=== PATIENT | male | born 1955 | race Caucasian/White ===

== ENCOUNTER → 2024-04-29 10:16 | Outpatient (REF) | payer MEDICARE, SELFPAY | LOC: HWRAD 10:16 | PROVIDERS: ATTENDING PHYSICIAN Nurse Practitioner; FAMILY PHYSICIAN Internal Medicine | DX: M25.552 Pain in left hip (principal); M70.61 Trochanteric bursitis, right hip | CPT/HCPCS: 73523 ==

== ENCOUNTER 2024-10-02 08:51 | Day surgery (SDC) | payer MEDICARE, SELFPAY | END 2024-10-02 10:19 | disposition home or self-care (01) | LOC: CATH 08:51 | PROVIDERS: ATTENDING PHYSICIAN Internal Medicine Cardiovascular Disease; FAMILY PHYSICIAN Internal Medicine; OTHER PHYSICIAN Internal Medicine Cardiovascular Disease | DX: I48.19 Other persistent atrial fibrillation (principal); I08.3 Combined rheumatic disorders of mitral, aortic and tricuspid valves; I45.10 Unspecified right bundle-branch block; I48.3 Typical atrial flutter; I25.10 Atherosclerotic heart disease of native coronary artery without angina pectoris; I71.21 Aneurysm of the ascending aorta, without rupture; Z79.01 Long term (current) use of anticoagulants | CPT/HCPCS: 93312; 93320; 93325; 92960; 93005 ==

== ENCOUNTER → 2024-11-18 08:55 | Outpatient (REF) | payer MEDICARE, SELFPAY ==
[2024-11-18 09:49] LABS: Hematocrit 42.8 % (39.0-52.0); Hemoglobin 15.0 g/dL (13.0-18.0); Mean Corp Hgb Conc. 35.0 g/dL (33.0-37.0); Mean Corpuscular Volume 93.4 fL (80.0-94.0); Nucleated Red Blood Cells % 0 % (-); Platelet Count 209 10^3/uL (130-400); Red Cell Dist. Width 12.4 % (11.5-14.5)
[2024-11-18 09:59] LABS: INR 1.12; PT 14.7 Sec (11.4-14.6)
[2024-11-18 10:05] LABS: ALT (SGPT) 19 U/L (0-50); AST (SGOT) 23 U/L (17-59); Albumin 4.4 g/dl (3.5-5.0); Alkaline Phosphatase 54 U/L (38-126); Blood Urea Nitrogen 13 mg/dl (9-20); Calcium 9.4 mg/dl (8.4-10.2); Carbon Dioxide 26 mmol/L (22-30); Chloride 106 mmol/L (98-107); Glucose 83 mg/dl (70-99); Magnesium 2.1 mg/dl (1.6-2.3); Potassium 4.5 mmol/L (3.5-5.1); Sodium 138 mmol/L (135-145); Total Protein 7.4 g/dl (6.3-8.2); eGFR > 60.00
== END ==
LOC: SDSPAT 08:55
PROVIDERS: ATTENDING PHYSICIAN Internal Medicine Cardiovascular Disease; FAMILY PHYSICIAN Internal Medicine; OTHER PHYSICIAN Internal Medicine Cardiovascular Disease
DX: I48.0 Paroxysmal atrial fibrillation (principal)
CPT/HCPCS: 36415; 75572; 80053; 83735; 85025; 85610; 86850; 86900; 86901; Q9967

== ENCOUNTER 2024-11-27 11:19 | Day surgery (SDC) | payer MEDICARE, SELFPAY ==
[2024-11-27] VITALS (9 sets, daily range): BP systolic 84–119; BP diastolic 59–88; BMI 27.9
--- NOTE | 2024-11-27 12:10 | ITS.CL.ABL ---
Impregnation Operator - Ablation
Ablation
Procedure Report:
ELECTROPHYSIOLOGIC STUDY AND POSSIBLE ABLATION
DATE: 11/27/2024
Primary Care Provider: Dr. Claudia Zarco
Primary Straight Knife Cutter Machine: Dr. Vishnu Felipe
INDICATION:
Symptomatic Atrial Fibrillation.
Persistent
HISTORY: See H and P.
Symptomatic AF, poorly controlled with attempted medical therapy.
He has history of PVI as well as right atrial flutter ablation in December 2021 and had done very well with low A-fib burden until July 2024 when his Apple Watch started noting higher burden. Outpatient monitor completed 09/04/2024 confirms 100%
A-fib burden with adequate rate control. ASA stopped and placed back on� Eliquis 5 mg twice a day.� [id number] of 1 (age).�
He underwent RADHA/cardioversion 10/02/2024 with successful alevism in sinus rhythm however was only able to maintain sinus rhythm for about a week and has been back in atrial fibrillation/flutter since that time.�
He is symptomatic with atrial fibrillation noting increased fatigue and dyspnea on exertion.�
HAS-BLED: 1
Age
CHADSVASc: 1
Age
PRESENTING RHYTHM: SR
HISTORY: See H and P.
Symptomatic AF, poorly controlled with attempted medical therapy.
ANTICOAGULATION: Apixaban 5 mg twice daily
'TIME-OUT': called and confirmed.
SEDATION/ANESTHESIA: provided via the anesthesia department using general anesthesia.
PROCEDURE:
Ultrasound Guidance with real-time visualization of needle insertion and vessel patency performed by wv for femoral venous Vascular Access.
Under real-time US guidance, the needle was advanced with negative pressure into the vein. The needle was seen entering the vessel lumen with a good return of dark red flow, the syringe was removed, non-pulsatile, dark red blood low was noted and
the wire was passed without difficulty, then the needle was removed. US confirmed the wire was in the vein, not going into an artery,
Images were taken and saved for the patient's permanent record. Imaging findings typical femoral venous anatomy. Direct visualization of needle puncture into the femoral vein was observed and recorded.
A decapolar CS catheter was placed within the CS for mapping and pacing.
The intracardiac ultrasound catheter was positioned in the RA for continuous intracardiac ultrasound imaging.
Heparin bolus and infusion to target ACT at 300 -350 seconds was administered. Transseptal puncture was performed. This entailed advancing a sheath with dilator into the superior vena cava and withdrawing both (monitoring intracardiac ultrasound,
fluoroscopy and tip pressure) with the tip oriented toward the atrial septum. The fossa ovalis was engaged (indicated by sudden displacement of the sheath tip as well as tenting of the fossa seen on intracardiac ultrasound).
Transseptal puncture was performed. Left atrial catheter position was confirmed by echocardiographic imaging, pressure monitoring (LA mean pressure 6 mm Hg) and fluoroscopy. The sheath was advanced over the dilator and positioned in the left
atrium.
The Sphere 9 multipolar mapping/ablation Sphere-9 catheter was positioned through the transseptal sheath for high density mapping.
Geometry and voltage mapping was performed using the [employer] mapping system for three-dimensional electroanatomical mapping.
Catheter positioning was guided and confirmed using both I.C.E. and fluoroscopy.
Cardioversion resulted in sinus rhythm.
High density electroanatomical three-dimensional mapping demonstrated common left pulmonary vein and 2 independent right sided veins, right superior and right inferior.
Ablation strategy included PVI as well as mapping for extra PV contributors to atrial fibrillation which would also be targeted if present.
Mapping demonstrated reconnection of the right inferior pulmonary vein towards its inferior septal quadrant.
Pulsed electric field energy delivery we isolated the pulmonary vein.
After accomplishing pulmonary venous isolation, mapping identified additional areas likely to be extra PV contributors to atrial fibrillation. These areas demonstrated patchy low voltage as well as complex fractionated electrograms. These areas can
be sites for the formation of rotors which can drive and maintain atrial fibrillation. These areas are known to be significant contributors to initiation and perpetuation of atrial fibrillation.
Additional energy applications/additional ablation sets targeted extra PV contributors to atrial fibrillation.
Targets for additional PFA ablation included:
LA posterior wall targeted with pulsed electric field energy isolating the posterior wall of the left atrium
LA inferior floor
The ridge of tissue between the left atrial appendage and the left sided pulmonary veins (Ligament of Chris )
These areas were ablated using pulsed electric field energy eliminating the extra PV contributors to atrial fibrillation.
Post ablation mapping finds entrance and exit block at each of the pulmonary veins the LA posterior wall and at the additional lines at the inferior/floor of the LA and the Ligament of Marshal rendering the sites no longer able to contribute to
atrial fibrillation.
Programmed electrostimulation including burst atrial pacing as well the delivery of decremental extrastimuli down to atrial effective refractory period and no sustained arrhythmias could be induced.
After withdrawal of the catheter from the left atrium, the right atrial CTI was mapped. Differential pacing demonstrated persistence of electrical block at the previously placed CTI line.
I.C.E. :
Pre-Ablation Post-Ablation
LVEF: 45-50 % 45-50 %
WMA: global global
Pericardial effusion: none none
LA Pressure (mmHg) 6 11
COMPLICATIONS:
none
SUMMARY:
- Mapping and ablation to isolate the PVs resulting in electrical isolation of the pulmonary veins
- Additional AF ablation sets X 3 after PVI (LA posterior wall, Inf/floor of the LA posterior wall, the ligament of Chris) resulting in elimination of the targeted extra PV contributors to atrial fibrillation.
- 3-D Electroanatomical Mapping
- Intracardiac Ultrasound
- Ultrasound guidance for vascular access
Post ablation, I called and left a voice message regarding today's findings and results with the patient's , Maira.
RECOMMENDATIONS:
- Observe in monitored bed.
- Maintain oral anticoagulation at least for 2 months post ablation. CHADSVASc is 1 therefore there can be consideration for stopping oral anticoagulation at some point post ablation if he does not demonstrate recurrence of atrial fibrillation.
- An office visit is scheduled with Dr. Vishnu Felipe for February 27, 2025.
Copy to:
Primary Care Provider: Dr. Claudia Zarco
Primary Straight Knife Cutter Machine: Dr. Vishnu Felipe
[2024-11-27 13:06] LABS: ACT-LR - POC 321 Seconds (116-155)
[2024-11-27 13:30] LABS: ACT-LR - POC 268 Seconds (116-155)
[2024-11-27 13:35] LABS: ACT-LR - POC 302 Seconds (116-155)
[2024-11-27] MEDS: ANESTHETIC LOZENGE 1 LOZENGE PO (14:14)
[2024-11-27] MEDS: NSS 500 IV (15:39)
--- NOTE | 2024-11-27 15:54 | W.PN.UPDATE ---
Update Note
Progress Note Update
69 yo WM s/p PVI (same day). He has mild sore throat, no cp, sob, jayce clears, voiding, EKG SR, R fem site Vascade, scant serosanguineous drainage, BP running low, IVF given. He will resume Eliquis tonight after 8pm. Activity restrictions reviewed.
He will f/u Dr. Felipe in 3 mo. He is for d/c home after 445p if groin stable.
== END 2024-11-27 16:45 | disposition home or self-care (01) ==
LOC: CATH 11:19
PROVIDERS: ATTENDING PHYSICIAN Internal Medicine Cardiovascular Disease; FAMILY PHYSICIAN Internal Medicine
DX: I48.19 Other persistent atrial fibrillation (principal); Z79.01 Long term (current) use of anticoagulants; I48.3 Typical atrial flutter; I25.10 Atherosclerotic heart disease of native coronary artery without angina pectoris; I45.10 Unspecified right bundle-branch block; I71.21 Aneurysm of the ascending aorta, without rupture; Z79.82 Long term (current) use of aspirin
CPT/HCPCS: C1733; C1894 ×2; C1766; C1730; C1892; 85347; 93005; 93656; 93657; C1760